=== PATIENT | male | born 1975 | race Caucasian/White ===

== ENCOUNTER 2019-04-21 12:58 | Observation (INO) ==
[2019-04-21] MEDS ORDERED: MoRPHine SULFATE 10 MG/ML CARP/VIAL IV STA (14:46)
[2019-04-21] MEDS ORDERED: SODIUM CHLORIDE 0.9% 1000ML 1,000 ML IV ONE (14:46)
[2019-04-21] MEDS ORDERED: ACETAMINOPHEN 1,000 MG/100 ML VIAL IV STA (14:46)
[2019-04-21 15:04] LABS: Basophils # (auto) 0.02 K/uL (0-0.2); Basophils % (auto) 0.2 %; Eosinophils # (auto) 0.02 K/uL (0-0.5); Eosinophils % (auto) 0.2 %; Hematocrit (blood only) 42.1 % (42-52); Hemoglobin 15.3 g/dL (14.0-18.0); Immature Granulocytes # (auto) 0.04 K/uL (0.00-0.02); Immature Granulocytes % (auto) 0.3 %; Lymphocytes # (auto) 1.11 K/uL (1.2-3.4); Lymphocytes % (auto) 9.5 %; Mean Corpuscular Hemoglobin 30.9 pg (25-34); Mean Corpuscular Hgb Conc 36.3 g/dL (32-36); Mean Corpuscular Volume 85.1 fL (80-100); Mean Platelet Volume 9.9 fL (7.4-10.4); Monocytes % (auto) 3.4 %; Neutrophils # (auto) 10.08 K/uL (1.4-6.5); Neutrophils % (auto) 86.4 %; Platelet Count 210 K/uL (130-400); RDW Coefficient of Variation 13.6 % (11.5-14.5); RDW Standard Deviation 42.3 fL (36.4-46.3); Red Blood Count 4.95 M/uL (4.7-6.1); White Blood Count 11.67 K/uL (4.8-10.8)
[2019-04-21 15:20] LABS: BUN Creatinine Ratio 12.4 (10-20); Calcium 8.9 mg/dl (8.5-10.1); Creatinine Clr Calc Pharmacy 123.9 ml/min; Est GFR (African American) 116.1; Est GFR (Non-African American) 100.2; Potassium 4.1 mmol/L (3.5-5.1)
[2019-04-21 15:22] LABS: Bilirubin,Total 0.3 mg/dl (0.2-1); Globulin 3.9 gm/dl (2.5-4.0); Total Protein 7.9 gm/dl (6.4-8.2)
[2019-04-21] MEDS ORDERED: IOVERSOL 100ml IV PRN (15:37)
--- NOTE | 2019-04-21 16:07 | CT Scan Report ---
CT OF THE ABDOMEN AND PELVIS WITH CONTRAST CLINICAL HISTORY: incarcerated umbilical hernia COMPARISON STUDY: None. TECHNIQUE: Following IV administration of 94 mL of Optiray-320, axial images of the abdomen and pelvi s were obtained from the lung bases to the proximal femurs. Images were reviewed in the axial, sagitt al, and coronal planes. IV contrast was administered without complication. Automated exposure contro l was utilized for the study. A dose lowering technique was utilized adhering to the principles of A CHRISTINA. CT DOSE: 837.00 mGy.cm FINDINGS: Lung bases are unremarkable. The liver, spleen, adrenal glands, kidneys and pancreas are no rmal. No pneumatosis, free air or portal venous gas is present. Note is made of minimal right omental infiltration. A loop of small bowel is located within an umbilical hernia. This loop is mildly dilat ed and fluid-filled, measuring 2.8 cm in caliber. There is a small amount of fluid within the hernia sac with trace associated infiltration. No significant bowel wall thickening is noted. The more proxi mal small bowel is not significantly dilated. Appendix is normal. A possible small fat-containing clara ateral inguinal hernias. No suspicious osseous lesions are noted. Is no hydronephrosis. IMPRESSION: 1. Loop of small bowel within an umbilical hernia. No significant upstream small bowel dilatation. Ho wever, the small bowel loop within the hernia sac is fluid-filled and mildly dilated with trace assoc iated ascites and infiltration. Minimal omental infiltration. Early strangulation of the loop within the hernia sac cannot be excluded. 2. Probable small fat-containing bilateral inguinal hernias. ACT 112: Negative or not required by law. Electronically signed by: Vadim Espinal M.D. 04/21/2019 4:06 PM
--- NOTE | 2019-04-21 17:12 | History & Physical Report ---
Date of Service April 21, 2019 Assessment & Plan (1) Incarcerated hernia: we discussed urgent need for OR. discussed risks ( bleeding/infection/dvt/pe/mi/cva/injury to an organ etc...). we also discussed the possibility of needing to do a bowel resection should a segment be damaged/ischemic. questions answered. pt agreeable. will proceed with open repair of incarcerated ventral hernia. History of Present Illness Primary Care Provider: ED TEMP pt with known umbilical hernia that he can typically self reduce...today it became large/painful and he was unable to reduce. CT shows incarcerated bowel. Allergies Allergy/AdvReac Type Severity Reaction Status Date / Time No Known Allergies Allergy Unverified 04/21/19 13:56 Home Medications Home Medications Medication Instructions Recorded Confirmed Type acetaminophen [Tylenol Extra 1,000 mg PO TID PRN 04/21/19 04/21/19 History Strength] tramadol [Ultram] 0 mg PO BID PRN 04/21/19 04/21/19 History Past Med/Surg History Medical History Umbilical hernia Social History Feels Safe at Home: Yes Smoking Status: Never smoker Review of Systems All systems reviewed & are unremarkable except as noted in HPI & below Physical Exam Constitutional: WD/WN, vitals as above no acute distress and not ill appearing Eyes: PERRL, conjunctivae normal, anicteric sclerae EOM intact bilaterally ENMT: external ear and nose normal, oropharynx normal Ears: no hearing impairment Neck: trachea midline, no thyromegaly Respiratory: normal respiratory effort; no respiratory distress and does not use accessory muscles Cardiovascular: Rate/Rhythm: regular rate and regular rhythm Gastrointestinal (Abdomen): soft. +incarcerated UH. unable to reduce. +skin color changes. Skin: no rashes, warm and dry Psychiatric: Orientation: alert, oriented x 3 and cooperative Results & Data Vital Signs (Past 12 Hours) Vital Signs Temp Pulse Pulse Resp BP BP Pulse Ox 04/21/19 14:51 97 04/21/19 14:49 74 20 153/84 H 98 04/21/19 13:07 36.9 C 70 20 172/95 H 99
[2019-04-21] MEDS ORDERED: BUPIVACAINE/EPINEPHRINE 0.5% MPF 1:200,000 10 ML VIAL ONE (17:16)
[2019-04-21] MEDS ORDERED: LIDOCAINE HCL 2% 2 ML VIAL/AMP(20MG/ML) INFIL ONE (17:20)
[2019-04-21] MEDS ORDERED: MIDAZOLAM HCL 1 MG/ML 2ML VIAL ONE (17:20)
[2019-04-21] MEDS ORDERED: fentaNYL citrate 100 MCG/2 ML VIAL ONE ×2 (17:20→19:38)
[2019-04-21] MEDS ORDERED: PROPOFOL IV EMULSION 10 MG/ML 20 ML VIAL IV ONE (17:20)
[2019-04-21] MEDS ORDERED: SUCCINYLCHOLINE CHLORIDE 20 MG/ML 10 ML VIAL ONE (17:21)
[2019-04-21] MEDS ORDERED: ROCURONIUM BROMIDE 10 MG/ML 5 ML VIAL ONE ×3 (17:21→18:54)
--- NOTE | 2019-04-21 17:33 | Anesthesiology Consultation ---
Date of Service April 21, 2019 Assessment & Plan (1) Encounter for pre-operative examination: Chart Review Chart Review: Acceptable Risk for Surgery and Patient NOT seen in Pre Admission Testing Consults Requested none ASA [id number] Proposed Anesthesia Anesthesia Type: General Risk / Benefits Reviewed With: PT / POA / Parent / Guardian, Accepts Plan and Informed Consent Obtained History Surgery Operation Date: 04/21/19 16:55 Proposed Procedures p Umbilical Hernia Repair - Johnie España, DO Height/Weight Height: 5 ft 10 in Weight: 104.3 kg Allergies Allergy/AdvReac Type Severity Reaction Status Date / Time No Known Allergies Allergy Unverified 04/21/19 13:56 Medications Home Medications Medication Instructions Recorded Confirmed Last Taken acetaminophen [Tylenol Extra 1,000 mg PO TID PRN 04/21/19 04/21/19 04/19/19 Strength] tramadol [Ultram] 0 mg PO BID PRN 04/21/19 04/21/19 04/21/19 Active Medications Generic Name Dose Route Start Last Admin Trade Name Freq PRN Reason Stop Dose Admin Ioversol 94 ml 04/21/19 15:37 04/21/19 15:37 Optiray 320 100ml IV 04/25/19 15:36 94 ml ONCE PRN Administration Interaction Checking NPO Date Last Intake of Fluids: 04/21/19 Time Last Intake of Fluids: 10:00 Date Last Intake of Solids: 04/20/19 Time Last Intake of Solids: 20:00 Past Medical History Medical History Obesity Umbilical hernia Exercise / Class Metabolic Activity II 4-5 Yardwork/Stairs/Walk up hill Past Surgical History Surgical History History of Achilles tendon repair History of tooth extraction Status post medial meniscus repair Past Anesthesia History No Hx of Anesthesia Complications History of PONV No Hx of Motion Sickness and History of PONV (1 episode) Social History Smoking Status: Never smoker Do You Dip or Chew Tobacco: No Hx Alcohol Use: Yes Alcohol type: beer alcohol intake frequency: a few times a week Hx Substance Use: No Review of Systems Positive for nausea and vomiting today Physical Exam Vital Signs Last Vital Signs Temp 36.9 C 04/21/19 13:07 Pulse 100 H 04/21/19 16:00 Resp 20 04/21/19 16:00 BP 158/96 H 04/21/19 16:00 Pulse Ox 98 04/21/19 16:00 Constitutional + obese ENMT Mouth: no TMJ abnormality and oral opening not small Thyromental Distance: > or= 3.5 Finger Breadths Mallampati Class: II Mouth / Teeth: 1. Chipped 2. Chipped Neck normal visual inspection; neck extension not limited Respiratory normal respiratory effort Auscultation: lungs clear to auscultation bilaterally Cardiovascular Rate/Rhythm: regular rate and regular rhythm Heart Sounds: no murmur Neurologic moves all extremities Psychiatric Orientation: alert and oriented x 3 Testing Laboratory Results 04/21/19 14:50 04/21/19 14:50
--- NOTE | 2019-04-21 17:34 | Emergency Department Note ---
Entered by Domi Cortes acting as a scribe for Sean Grande MD History of Present Illness General Chief complaint: Constipation Stated complaint: UMBLILICAL HERNIA,UNABLE TO HAVE BOWEL MOVEMENT Time Seen by Provider: 04/21/19 14:25 Source: patient History of Present Illness Onset (ago): hour(s) (several) Location: abdomen (central) Pain Consistency: + other (persistent ) Maximum Pain Intensity: 9 Associated symptoms: + nausea/vomiting Treatments prior to arrival: none The patient is a 43 year old male who presents to the Emergency Room with complaints of persistent central abdominal pain that began several hours prior to arrival. The patient states that he has a hernia here but states that this has not caused him problems previously. The patient states that he is typically able to get this hernia to go back in but states that today, since waking up this morning, he was unable to do this as it was too painful. The patient reports nausea and vomiting today. Home Medications Home Medications Medication Instructions Recorded Confirmed Type acetaminophen [Tylenol Extra 1,000 mg PO TID PRN 04/21/19 04/21/19 History Strength] tramadol [Ultram] 0 mg PO BID PRN 04/21/19 04/21/19 History Allergies Allergy/AdvReac Type Severity Reaction Status Date / Time No Known Allergies Allergy Unverified 04/21/19 13:56 Past Med/Surg History Medical History Obesity Umbilical hernia Surgical History History of Achilles tendon repair History of tooth extraction Status post medial meniscus repair Social History Preferred Language: Estonian Communication Ability: Effective Personnel Administrator Required: No Beliefs That Will Affect Care: None Current Living Situation: Spouse Feels Safe at Home: Yes Safety Concerns: Feels Safe At This Time Smoking Status: Never smoker Do You Dip or Chew Tobacco: No ; Second Hand Exposure: No ; Tobacco Cessation Education Requested by Patient: No Hx Alcohol Use: Yes Alcohol type: beer Hx Substance Use: No Review of Systems See HPI for pertinent positives & negatives. and A total of 10 systems reviewed and were otherwise negative Physical Exam Vital Signs Vital Signs - 24 hr 04/21/19 13:07 04/21/19 14:49 04/21/19 14:51 Temperature 36.9 C Temperature Source Oral Pulse Rate 70 Pulse Rate [Right Finger] 74 Pulse Rhythm Regular Pulse Rhythm [Right Finger] Pulse Strength Normal Pulse Strength [Right Finger] Respiratory Rate 20 20 Respiratory Effort / Characteristics Non-Labored Spontaneous Non-Labored Respiratory Depth Normal Normal Respiratory Pattern Regular Blood Pressure 172/95 H Blood Pressure [Left Arm] 153/84 H Blood Pressure Mean 120 Blood Pressure Mean [Left Arm] 107 Blood Pressure Position [Left Arm] Pulse Oximetry 99 98 97 Oxygen Delivery Method Room Air Room Air Room Air Oxygen Flow Rate Sepsis Recent Fever Within 48 Hours No Sepsis New/Unexplained Change in Mental Status No Sepsis Action Taken by Nursing No Action Required 04/21/19 16:00 04/21/19 17:14 04/21/19 19:12 Temperature 36.4 C L Temperature Source Temporal Artery Scan Pulse Rate Pulse Rate [Right Finger] 100 H 80 Pulse Rhythm Pulse Rhythm [Right Finger] Regular Regular Pulse Strength Pulse Strength [Right Finger] Normal Normal Respiratory Rate 20 16 Respiratory Effort / Characteristics Non-Labored Spontaneous Non-Labored Spontaneous Respiratory Depth Normal Normal Respiratory Pattern Regular Regular Blood Pressure Blood Pressure [Left Arm] 158/96 H 189/95 H Blood Pressure Mean Blood Pressure Mean [Left Arm] 116 126 Blood Pressure Position [Left Arm] Sitting Sitting Pulse Oximetry 98 96 Oxygen Delivery Method Room Air Room Air Oxymask Oxygen Flow Rate 10 Sepsis Recent Fever Within 48 Hours Sepsis New/Unexplained Change in Mental Status Sepsis Action Taken by Nursing 04/21/19 19:24 04/21/19 19:34 04/21/19 19:44 Temperature Temperature Source Pulse Rate Pulse Rate [Right Finger] 65 70 62 Pulse Rhythm Pulse Rhythm [Right Finger] Regular Regular Regular Pulse Strength Pulse Strength [Right Finger] Normal Normal Normal Respiratory Rate 16 16 16 Respiratory Effort / Characteristics Non-Labored Spontaneous Non-Labored Spontaneous Non-Labored Spontaneous Respiratory Depth Normal Normal Normal Respiratory Pattern Regular Regular Regular Blood Pressure Blood Pressure [Left Arm] 208/197 H 208/96 H 153/116 H Blood Pressure Mean Blood Pressure Mean [Left Arm] 200 133 128 Blood Pressure Position [Left Arm] Sitting Sitting Sitting Pulse Oximetry 94 97 97 Oxygen Delivery Method Oxymask Oxymask Oxymask Oxygen Flow Rate 10 5 5 Sepsis Recent Fever Within 48 Hours Sepsis New/Unexplained Change in Mental Status Sepsis Action Taken by Nursing 04/21/19 19:55 04/21/19 20:04 04/21/19 20:14 Temperature 36.8 C Temperature Source Temporal Artery Scan Pulse Rate Pulse Rate [Right Finger] 52 L 85 80 Pulse Rhythm Pulse Rhythm [Right Finger] Regular Regular Regular Pulse Strength Pulse Strength [Right Finger] Normal Normal Normal Respiratory Rate 16 16 16 Respiratory Effort / Characteristics Non-Labored Spontaneous Non-Labored Spontaneous Non-Labored Spontaneous Respiratory Depth Normal Normal Normal Respiratory Pattern Regular Regular Regular Blood Pressure Blood Pressure [Left Arm] 141/92 H 162/94 H 151/95 H Blood Pressure Mean Blood Pressure Mean [Left Arm] 108 116 113 Blood Pressure Position [Left Arm] Sitting Sitting Sitting Pulse Oximetry 96 96 95 Oxygen Delivery Method Oxymask Nasal Cannula Nasal Cannula Oxygen Flow Rate 5 4 2 Sepsis Recent Fever Within 48 Hours Sepsis New/Unexplained Change in Mental Status Sepsis Action Taken by Nursing 04/21/19 20:45 Temperature 37.1 C Temperature Source Oral Pulse Rate Pulse Rate [Right Finger] 92 H Pulse Rhythm Pulse Rhythm [Right Finger] Pulse Strength Pulse Strength [Right Finger] Normal Respiratory Rate 16 Respiratory Effort / Characteristics Non-Labored Spontaneous Respiratory Depth Normal Respiratory Pattern Regular Blood Pressure Blood Pressure [Left Arm] 153/90 H Blood Pressure Mean Blood Pressure Mean [Left Arm] 111 Blood Pressure Position [Left Arm] Lying Pulse Oximetry 97 Oxygen Delivery Method Nasal Cannula Oxygen Flow Rate 2 Sepsis Recent Fever Within 48 Hours Sepsis New/Unexplained Change in Mental Status Sepsis Action Taken by Nursing GENERAL: Awake, alert, uncomfortable-appearing, in no distress HENT: Normocephalic, atraumatic. Oropharynx with dry mucous membranes and otherwise unremarkable. EYES: Normal conjunctiva. Sclera non-icteric. NECK: Supple. No nuchal rigidity. FROM. No JVD. RESPIRATORY: CTAB. CARDIAC: Regular rate, normal rhythm. Extremities warm and well perfused. Pulses equal. ABDOMEN: 4 cm hardened umbilical hernia with skin changes. Moderate tenderness to palpation. No crepitus. No guarding or rebound. RECTAL: Deferred. MUSCULOSKELETAL: Chest examination reveals no tenderness. The back is symmetrical on inspection without obvious abnormality. There is no CVA tenderness to palpation. No joint edema. LOWER EXTREMITIES: Calves are equal size bilaterally and non-tender. No edema. No discoloration. NEURO: Normal sensorium. No sensory or motor deficits noted. SKIN: No rash or jaundice noted. Course Course 1435: Past medical records reviewed. The patient was evaluated in room B8. A complete history and physical exam was performed. 1649: I discussed the case with Dr. Rachele Werner who states that he will come evaluate the patient. 1714: Dr. Rachele Werner took the patient to the OR for further e valuation and treatment. Administered Medications Hydrocodone Bitart/Acetaminophen ([place] 5/325) 2 tab PO Q4H PRN PRN Reason: SEVERE Pain (Scale 7,8,9,10) Stop: 05/05/19 20:46 Last Admin: 04/21/19 23:21 Dose: 2 tab Documented by: [id number] Acetaminophen (Ofirmev) 1,000 mg in 100 mls @ 400 mls/hr IV Q8H PRN PRN Reason: MILD Pain (Scale 1,2,3) Stop: 04/24/19 20:46 Last Infusion: 04/21/19 22:10 Dose: 0 mls/hr Documented by: [id number] Admin: 04/21/19 21:51 Dose: 400 mls/hr Documented by: [id number] Sodium Chloride (Nss 1000ml) 1,000 mls @ 125 mls/hr IV .Q8H YOLANDA Stop: 05/21/19 20:46 Last Admin: 04/21/19 21:52 Dose: 125 mls/hr Documented by: [id number] Cefazolin Sodium (Ancef 2000mg) 2,000 mg in 15 mls @ 3.75 mls/min IV Q8H YOLANDA; Protocol Stop: 04/23/19 00:00 Last Admin: 04/21/19 23:21 Dose: 3.75 mls/min Documented by: [id number] Ioversol (Optiray 320 100ml) 94 ml IV ONCE PRN PRN Reason: Interaction Checking Stop: 04/25/19 15:36 Last Admin: 04/21/19 15:37 Dose: 94 ml Documented by: [id number] Discontinued Medications Bupivacaine HCl/Epinephrine Bitart (Sensorcaine/Epinephrine 0.5% Mpf 1:200,000) Confirm Administered Dose 20 ml .ROUTE .STK-MED ONE Stop: 04/21/19 17:17 Last Admin: 04/21/19 18:56 Dose: 20 ml Documented by: [id number] Fentanyl Citrate (Fentanyl Citrate) Confirm Administered Dose 100 mcg .ROUTE .STK-MED ONE Stop: 04/21/19 19:39 Last Increment: 04/21/19 19:40 Dose: 50 mcg Documented by: [id number] Sodium Chloride (Nss 1000ml) 1,000 mls @ 999 mls/hr IV .Q1H1M ONE Stop: 04/21/19 15:46 Last Infusion: 04/21/19 16:50 Dose: 0 mls/hr Documented by: [id number] Admin: 04/21/19 14:58 Dose: 999 mls/hr Documented by: [id number] Acetaminophen (Ofirmev) 1,000 mg in 100 mls @ 400 mls/hr IV NOW STA Stop: 04/21/19 15:00 Last Infusion: 04/21/19 15:31 Dose: 0 mls/hr Documented by: [id number] Admin: 04/21/19 14:58 Dose: 400 mls/hr Documented by: [id number] Cefazolin Sodium (Ancef 2000mg) 2,000 mg in 15 mls @ 3.75 mls/min IV PREOP ONE Stop: 04/21/19 18:31 Last Admin: 04/21/19 18:16 Dose: 3.75 mls/min Documented by: [id number] Meperidine HCl (Demerol) Confirm Administered Dose 25 mg .ROUTE .STK-MED ONE Stop: 04/21/19 19:21 Last Admin: 04/21/19 19:22 Dose: 25 mg Documented by: [id number] Morphine Sulfate (Morphine Sulfate) 8 mg IV NOW STA Stop: 04/21/19 14:47 Last Admin: 04/21/19 14:58 Dose: 8 mg Documented by: [id number] Medical Decision Making Differential Diagnosis Differential diagnoses includes but is not limited to gastritis, peptic ulcer disease, GERD, gallbladder disease, pancreatitis, small bowel obstruction, acute coronary syndrome, pericarditis, ischemic bowel, irritable bowel disease, irritable bowel syndrome, appendicitis, diverticulitis, malignancy, hernia, urinary tract infection, torsion, perforation, trauma, infectious. Medical Records Attestation: I reviewed the patient's medical records. Home Medications Current Medication List: was personally reviewed by me Laboratory Data Attestation: I reviewed the patient's lab results. Result diagrams: 04/21/19 14:50 02/09/20 14:50 Lab Results 04/21/19 04/21/19 Range/Units 14:50 14:50 WBC 11.67 H (4.8-10.8) K/uL RBC 4.95 (4.7-6.1) M/uL Hgb 15.3 (14.0-18.0) g/dL Hct 42.1 (42-52) % MCV 85.1 (80-100) fL MCH 30.9 (25-34) pg MCHC 36.3 H (32-36) g/dL RDW Std Deviation 42.3 (36.4-46.3) fL RDW Coeff of Lisa 13.6 (11.5-14.5) % Plt Count 210 (130-400) K/uL MPV 9.9 (7.4-10.4) fL Immature Gran % (Auto) 0.3 % Neut % (Auto) 86.4 % Lymph % (Auto) 9.5 % Lares % (Auto) 3.4 % Eos % (Auto) 0.2 % Baso % (Auto) 0.2 % Immature Gran # (Auto) 0.04 H (0.00-0.02) K/uL Neut # (Auto) 10.08 H (1.4-6.5) K/uL Lymph # (Auto) 1.11 L (1.2-3.4) K/uL Lares # (Auto) 0.40 (0.11-0.59) K/uL Eos # (Auto) 0.02 (0-0.5) K/uL Baso # (Auto) 0.02 (0-0.2) K/uL Sodium 137 (136-145) mmol/L Potassium 4.1 (3.5-5.1) mmol/L Chloride 103 (98-107) mmol/L Carbon Dioxide 28 (21-32) mmol/L Anion Gap 6.0 (3-11) BUN 12 (7-18) mg/dl Creatinine 0.93 (0.6-1.4) mg/dl Est Cr Clr Drug Dosing 123.9 ml/min Est GFR ( Amer) 116.1 Est GFR (Non-Af Amer) 100.2 BUN/Creatinine Ratio 12.4 (10-20) Glucose 108 H (70-99) mg/dl Calcium 8.9 (8.5-10.1) mg/dl Total Bilirubin 0.3 (0.2-1) mg/dl AST 19 (15-37) U/L ALT 48 (12-78) U/L Alkaline Phosphatase 88 (45-117) U/L Total Protein 7.9 (6.4-8.2) gm/dl Albumin 4.0 (3.4-5.0) gm/dl Globulin 3.9 (2.5-4.0) gm/dl Albumin/Globulin Ratio 1.0 (0.9-2) Lipase 135 (73-393) U/L Imaging Data Radiologist's Impression: Radiology results as stated below per my review and the radiologist's interpretation: CT OF THE ABDOMEN AND PELVIS WITH CONTRAST CLINICAL HISTORY: incarcerated umbilical hernia COMPARISON STUDY: None. TECHNIQUE: Following IV administration of 94 mL of Optiray-320, axial images of the abdomen and pelvis were obtained from the lung bases to the proximal femurs. Images were reviewed in the axial, sagittal, and coronal planes. IV contrast was administered without complication. Automated exposure control was utilized for the study. A dose lowering technique was utilized adhering to the principles of ALARA. CT DOSE: 837.00 mGy.cm FINDINGS: Lung bases are unremarkable. The liver, spleen, adrenal glands, kidneys and pancreas are normal. No pneumatosis, free air or portal venous gas is present. Note is made of minimal right omental infiltration. A loop of small bowel is located within an umbilical hernia. This loop is mildly dilated and fluid-filled, measuring 2.8 cm in caliber. There is a small amount of fluid within the hernia sac with trace associated infiltration. No significant bowel wall thickening is noted. The more proximal small bowel is not significantly dilated. Appendix is normal. A possible small fat-containing bilateral inguinal hernias. No suspicious osseous lesions are noted. Is no hydronephrosis. IMPRESSION: 1. Loop of small bowel within an umbilical hernia. No significant upstream small bowel dilatation. However, the small bowel loop within the hernia sac is fluid- filled and mildly dilated with trace associated ascites and infiltration. Minimal omental infiltration. Early strangulation of the loop within the hernia sac cannot be excluded. 2. Probable small fat-containing bilateral inguinal hernias. ACT 112: Negative or not required by law. Electronically signed by: Vadim Espinal M.D. 04/21/2019 4:06 PM Blood Pressure Blood Pressure Findings: Elevated blood pressure Blood Pressure Disposition: elevated BP felt to be situational MDM Narrative The patient is a pleasant 43-year-old gentleman who presents emergency department with worsening abdominal pain since this morning in the setting of noticing his umbilical hernia was unable to be reduced as it usually is per HPI. On arrival the patient is uncomfortable no acute distress, afebrile stable vital signs. On exam the patient has a 4 cm hardened umbilical hernia with skin discoloration and mild tenderness without guarding or rebound. Some reduction achieved with the patient supine in Trendelenburg but complete reduction was not successful. WBC 11.6, nonspecific. H/H, platelets wnl. Chemistry without acidosis. LFTs and electrolytes unremarkable. CT abd pelvis subsequently demonstrates persistent hernia with possibility of early strangulation. Case was discussed with Dr. España, general surgery on-call who came to evaluate the patient at the bedside and admitted the patient to the operating room. Impression & Plan Incarcerated umbilical hernia, Nausea & vomiting Discharge Plan Visit Data *Final* Discharge Date/Time: 04/21/19 17:14 Chief Complaint: Constipation Stated Complaint: UMBLILICAL HERNIA,UNABLE TO HAVE BOWEL MOVEMENT ED Provider: Sean Grande Discharge Problem: Incarcerated umbilical hernia, Nausea & vomiting Patient Disposition: Still a Patient Discharge Instructions Interventions: ED Discharge Assessment Last Done: 04/21/19 17:14 The scribe's documentation has been prepared under my direction and personally reviewed by me in its entirety. I confirm that the note above accurately re flects all work, treatment, procedures, and medical decision making performed by me.
[2019-04-21] MEDS ORDERED: CEFAZOLIN 250 MG/ML 1 GM VIAL ONE (18:14)
[2019-04-21] MEDS ORDERED: HYDROmorphone INJ 2 MG/ML SYR/VIAL ONE (18:21)
[2019-04-21] MEDS ORDERED: ONDANSETRON INJ 2 MG/ML 2 ML VIAL ONE (18:24)
[2019-04-21] MEDS ORDERED: DEXAMETHASONE SOD INJ 4 MG/ML VIAL ONE (18:24)
[2019-04-21] MEDS ORDERED: CEFAZOLIN 2000MG 2,000 MG/15 ML SYR IV ONE (18:28)
[2019-04-21] MEDS ORDERED: HYDROmorphone INJ 2 MG/ML SYR/VIAL IV PRN (18:39)
[2019-04-21] MEDS ORDERED: ATROPINE SULFATE 0.1 MG/ML 10ML SYR IV PRN (18:39)
[2019-04-21] MEDS ORDERED: fentaNYL citrate 100 MCG/2 ML VIAL IV PRN (18:39)
[2019-04-21] MEDS ORDERED: ONDANSETRON INJ 2 MG/ML 2 ML VIAL IV PRN ×2 (18:39→20:47)
[2019-04-21] MEDS ORDERED: ePHEDrine sulfate 50 MG/ML AMP IV PRN (18:39)
[2019-04-21] MEDS ORDERED: PROMETHAZINE HCL 12.5 MG in SODIUM CHLORIDE 0.9% 50 ML IV PRN (18:39)
--- NOTE | 2019-04-21 19:13 | Operative Report ---
PG Post Operative Report Pre & Post Diagnosis Operation Date: 04/21/19 16:55 Pre-Op Diagnosis: Incarcerated umbilical hernia Post-Op Diagnosis: Incarcerated umbilical hernia I identified the patient and participated in the time-out.: Yes Procedure Operation Date: 04/21/19 16:55 Actual Procedures p Umbilical Hernia Repair - Johnie España DO Surgeon Johnie España DO [employer] Scientist n/a Estimated Blood Loss 5 Findings Consistent with Post-Op Diagnosis Specimens none Description of Procedure After informed consent was obtained the patient was taken to the operating room and placed in supine position. After successful intubation the abdomen was shaved and sterilely prepped and draped in usual fashion. I made an in fraumbilical curvilinear incision with a 10 blade scalpel. This was carried down through soft tissue using cautery. We encountered a large hernia sac with fluid within it. I gently opened this using Metzenbaum scissors. We suctioned out the fluid and immediately encountered about 4 inches of a closed-loop knuckle of bowel that was mild to moderately ischemic. I was able to insert my finger through the very small hernia defect and enlarge the defect distally with cautery so that I could release the bowel. I was able to then pull out a couple more inches of normal-appearing nondilated pink bowel. We placed warm compresses on the bowel for about 10 to 15 minutes. When I reexamined it it was in fact turning pink. There was no evidence of actual infarction and the serosa appeared to be intact and without injury. At this point I reduced it back into the abdominal cavity without difficulty. I resected the entire hernia sac using cautery and discarded it. I then closed the fascia using #1 Ethibond in simple interrupted fashion. I then thoroughly irrigated the soft tissue. I reattached the umbilical stalk using 0 Vicryl. Deep layers were closed using 3-0 Vicryl and skin was closed using 4-0 Monocryl in running subcuticular fashion. Marcaine with epinephrine were injected around the incision for postoperative analgesia and a sterile dressing was applied. The patient was awakened, extubated and transferred recovery in stable condition. I attest to the content of the Intraoperative Record and any orders documented therein. Any exceptions are noted below.
[2019-04-21] MEDS ORDERED: MEPERIDINE HCL 25 MG/ML CARP IV PRN (19:19)
[2019-04-21] MEDS ORDERED: MEPERIDINE HCL 25 MG/ML CARP ONE (19:20)
--- NOTE | 2019-04-21 20:18 | Anesthesiology Progress Note ---
Date of Service April 21, 2019 Anesthesia Post Procedure Vital Signs Vital Signs: Temp Pulse Pulse Resp BP BP Pulse Ox 04/21/19 20:04 85 16 162/94 H 96 04/21/19 19:55 52 L 16 141/92 H 96 04/21/19 19:44 62 16 153/116 H 97 04/21/19 19:34 70 16 208/96 H 97 04/21/19 19:24 65 16 208/197 H 94 04/21/19 19:12 36.4 C L 80 16 189/95 H 96 04/21/19 16:00 100 H 20 158/96 H 98 04/21/19 14:51 97 04/21/19 14:49 74 20 153/84 H 98 04/21/19 13:07 36.9 C 70 20 172/95 H 99 Pain Intensity Abdomen: Pain Intensity: 8 Transfer of Care Handoff Completed per policy Notes Mental Status: alert / awake / arousable and participated in evaluation Patient Amnestic to Procedure: Yes Nausea / Vomiting: adequately controlled Pain: adequately controlled Airway Patency, RR, SpO2: stable & adequate BP & HR: stable & adequate Hydration State: stable & adequate Anesthetic Complications: no major complications apparent and Pt Satisfied with anesthetic care
[2019-04-21] MEDS ORDERED: IBUPROFEN 600 MG TAB PO PRN (20:47)
[2019-04-21] MEDS ORDERED: HYDROmorphone INJ 1 MG/ML SYRINGE IV PRN (20:47)
[2019-04-21] MEDS ORDERED: HYDROCODONE/ACETAMOPHEN 5/325MG TAB PO PRN (20:47)
[2019-04-21] MEDS ORDERED: ACETAMINOPHEN 1,000 MG/100 ML VIAL IV PRN (20:47)
[2019-04-21] MEDS ORDERED: HYDROmorphone INJ 0.5 MG/0.5 ML SYR IV PRN (21:21)
[2019-04-21] MEDS: SODIUM CHLORIDE 0.9% 1000ML 1,000 ML IV SCH (21:52)
[2019-04-21] MEDS: CEFAZOLIN 2000MG 2,000 MG/15 ML SYR IV SCH (23:21)
[2019-04-21] MEDS: HYDROCODONE/ACETAMOPHEN 5/325MG TAB PO PRN (23:21)
[2019-04-22] MEDS: HYDROCODONE/ACETAMOPHEN 5/325MG TAB PO PRN ×2 (04:38→10:02)
[2019-04-22 05:55] LABS: Basophils # (auto) 0.01 K/uL (0-0.2); Basophils % (auto) 0.1 %; Hematocrit (blood only) 39.9 % (42-52); Hemoglobin 13.7 g/dL (14.0-18.0); Immature Granulocytes # (auto) 0.05 K/uL (0.00-0.02); Immature Granulocytes % (auto) 0.3 %; Lymphocytes # (auto) 1.37 K/uL (1.2-3.4); Lymphocytes % (auto) 8.8 %; Mean Corpuscular Hemoglobin 30.4 pg (25-34); Mean Corpuscular Hgb Conc 34.3 g/dL (32-36); Mean Corpuscular Volume 88.5 fL (80-100); Mean Platelet Volume 10.4 fL (7.4-10.4); Monocytes # (auto) 0.73 K/uL (0.11-0.59); Monocytes % (auto) 4.7 %; Neutrophils % (auto) 86.1 %; Platelet Count 294 K/uL (130-400); RDW Coefficient of Variation 14.2 % (11.5-14.5); RDW Standard Deviation 46.3 fL (36.4-46.3); Red Blood Count 4.51 M/uL (4.7-6.1); White Blood Count 15.56 K/uL (4.8-10.8)
[2019-04-22] MEDS: SODIUM CHLORIDE 0.9% 1000ML 1,000 ML IV SCH (06:02)
[2019-04-22] MEDS: CEFAZOLIN 2000MG 2,000 MG/15 ML SYR IV SCH (07:47)
--- NOTE | 2019-04-22 08:33 | Surgery Progress Note ---
Date of Service April 22, 2019 Assessment & Plan (1) Incarcerated umbilical hernia: POD#1 umbilical hernia repair VSS and pt clinically feeling better currently tolerating liquids without issue. will advance to regular diet as tolerates pain tolerable anticipate possible discharge to home later today as above. feeling better. ger light diet. ok for d/c. instructions given. Subjective Patient says he is feeling better than when he came in. Some incisional pain is manageable. Tolerating liquids without n/v. Starting to pass some gas. Physical Exam Physical Exam: awake/alert, sitting up in chair Respiratory: normal respiratory effort Gastrointestinal (Abdomen): Inspection/Auscultation: + abdomen distended (mild) and + abdominal surgical incision (with surgical dressing in place, some serosang. shadowing) Percussion/Palpation: + abdomen tender (mildly lisa- incisionally) and abdomen soft Results & Data Vital Signs (Past 12 Hours) Vital Signs Temp Pulse Resp BP Pulse Ox 04/22/19 07:32 36.7 C 85 16 115/75 96 04/22/19 03:24 36.6 C 86 16 117/81 94 04/21/19 23:48 36.7 C 97 H 16 112/74 97 04/21/19 22:42 36.4 C L 72 16 125/79 94 04/21/19 21:44 37 C 96 H 16 110/75 96 04/21/19 21:15 36.7 C 78 16 119/82 94 04/21/19 20:45 37.1 C 92 H 16 153/90 H 97 PG Care Time/CCT Total # of Minutes Spent Total Time Spent with Patient: Total time spent is greater than 50% in coordination of care (as documented) at patient's floor/unit and/or counseling patient: Coding Level of Care Code None Diagnoses Incarcerated umbilical hernia K42.0
--- NOTE | 2019-04-22 11:10 | Discharge Summary ---
Date of Service April 22, 2019 Admission HPI Per Admitting Provider pt with known umbilical hernia that he can typically self reduce...today it became large/painful and he was unable to reduce. CT shows incarcerated bowel. Principal Diagnosis incarcerated umbilical hernia Discharge Exam awake/alert Constitutional well developed and well nourished; no acute distress Respiratory normal respiratory effort Gastrointestinal (Abdomen) Inspection/Auscultation: + abdomen distended (mild) and + abdominal surgical incision (with surgical dressing in place, some serosang. shadowing) Percussion/Palpation: + abdomen tender (mildly lisa-incisionally) and abdomen soft Discharge Data Allergies Allergy/AdvReac Type Severity Reaction Status Date / Time No Known Allergies Allergy Unverified 04/21/19 13:56 Consultations 04/21/19 17:34 ED Decision to Admit Stat Procedures Performed Operation Date: 04/21/19 16:55 Actual Procedures p Umbilical Hernia Repair - Johnie España, DO Ordered Studies 04/21/19 15:14 CT abd pelvis IV con only Stat Hospital Course (1) Incarcerated umbilical hernia: This is a 43yM who presented to the [facility] ED on 04/21/19 with complaints of abdominal pain. Patient reports he typically has a hernia around his umbilical region, however today it was unable to be reduced and was painful. Patient underwent a CT a/p that revealed a loop of small bowel within an umbilical hernia, the small bowel loop within the hernia sac is fluid-filled and mildly dilated with trace associated ascites and infiltration, and early strangulation of the loop within hernia sac cannot be excluded. Decision was made to proceed with surgical intervention and patient agreeable with the plan. On 04/21 the patient went to the OR with Dr. España for an open umbilical hernia repair. The patient tolerated the procedure well, see operative report for full details. The patient recovered in the PACU and was transferred to the surgical floor in stable condition. Post operatively the patient's pain was managed with prn medication, he was voiding spontaneously, and he tolerated liquids without issue. On POD#1 his diet was advanced to regular, pain remained tolerable with prn meds, and he was voiding and ambulating without difficulty. He was provided with post surgical instructions regarding incision care, activity restrictions, and was asked to make a follow up in clinic within 1 week and to not hesitate to call the office with any questions/concerns. Total Time Total Time Spent Total Time Spent (In Minutes): 15 Discharge Plan Discharge Items Patient Disposition: Home - Self-Care Reason For Visit: S/P REPAIR INCARCERATED HERNIA Discharge Diagnosis: umbilical hernia repair Activity: Per Instructions section Lifting: No more than 10 pounds Bathing Comment: may shower. no soaking in tubs Exercise/Sports: Wait until after follow-up appointment Driving/Machine Use: do not resume driving while taking narcotics for pain Non-emergency contact: Surgeon Call non-emergency contact if: you have any medication questions, your symptoms worsen, your pain is not controlled, your pain is worsening, you have a fever, your temperature is above 101.5, your wound has increased redness, your wound has increased drainage and your wound pain has increased Follow-up/Referrals: Johnie España, [Surgeon] - (Please call to schedule follow up in clinic within 1 week) TEMP,ED [Primary Care Provider] - Diet: Regular Addtl Attending Provider Instructions: Please be aware that both the narcotic [place] (hydrocodone- acetaminophen) and Tylenol both contain Acetaminophen and that you should NOT exceed 3grams of Acetaminophen within a 24hour time period. If you have any leftover Tramadol at home you should NOT take this concurrently with [place] as they are both narcotic medications and can cause severe side effects if taken together such as respiratory depression. You may take down your surgical dressing tomorrow, 04/23/19. You may shower, no soaking in tubs. You should then re-dress your wound daily with antibiotic ointment, dry 4x4 gauze, and medical tape daily. Pending Studies at Discharge: No Stand-Alone Forms: My [facility] [employer], Smoking Cessation Medications and DC Order Prescriptions: New hydrocodone-acetaminophen [[place]] 5-325 mg tablet 1 - 2 tab PO .q4-6h PRN (Reason: pain, for initial therapy, max 6 tabs per day) Qty: 15 RF: 0 Discontinued tramadol [Ultram] 50 mg Tablet 0 mg PO BID PRN (Reason: Pain) RF: 0 acetaminophen [Tylenol Extra Strength] 500 mg Tablet 1,000 mg PO TID PRN (Reason: Fever Or Pain) RF: 0 Discharge Orders: Discharge Order (Routine); Ordered 04/22/19 Ordered By: Christina York Admission Data Admit Date/Time: 04/21/19 20:47 Attending Provider: Johnie España Admit Provider: Johnie España Primary Care Provider: CHAY CORONA Other Providers: Johnie España Other Interventions: Discharge Summary Assessment (RN) Last Done: 04/22/19 10:51 Coding Level of Care Code D/C Day Management <30 mins Diagnoses Incarcerated umbilical hernia K42.0
== END 2019-04-22 13:14 | disposition home or self-care (01) ==
LOC: ED 12:58 → OR 17:14 → 3W 19:04 → INTOOBSV 19:04